=== PATIENT | female | born 1995 | race Caucasian/White ===

== ENCOUNTER 2024-08-21 13:26 | Emergency (ER) | payer BC, SELFPAY ==
[2024-08-21 13:28] VITALS: BP 126/74
[2024-08-21 13:51] VITALS: BMI 23.0
--- NOTE | 2024-08-21 13:59 | ED.GENMED ---
History of Present Illness
General
Chief Complaint: Abdominal Symptoms
Source: patient
Time Seen by Provider: 08/21/24 13:55
History of Present Illness
History of Present Illness:
29-year-old female with past medical history of kidney stones presenting to the emergency department for evaluation of sudden onset right flank pain nausea and vomiting, 10 out of 10 pain described to be sharp in similar to previous episodes of
kidney stones. Patient currently visiting here from [facility] staying with friends and boyfriend she did not take anything prior to arriving to the emergency department. Last menstrual period was 3 weeks ago, she does not have concern for
. No other symptoms at this time.
Past History
Past History
ED Past Medical History: Other (Kidney stones)
ED Past Surgical History: None
Social History
Tobacco: Non-smoker
Alcohol: Occasional
Drug: None
Personal: Other
Living: with family
Review of Systems
Review of Systems
All Other Systems: ROS reviewed and negative except as documented in HPI and ROS
Phy Exam
Physical Exam
Physical Exam:
GENERAL: Alert , in no apparent distress but appears very uncomfortable, retching
EYE: clear conjunctiva b/l
HEAD: NCAT
ENT: o/p clr, mmm.
CARDIAC: Regular rate and rhythm .
LUNGS: Clear breath sounds bilaterally, no acute respiratory distress, no wheezes/rales/rhonchi
ABDOMEN: Soft, without focal tenderness, no r/g, right CVA tenderness
NEUROLOGICAL: Alert and oriented
SKIN: Warm and dry, skin intact.
MUSCULOSKELETAL: No edema, well perfused.
PSYCH: Normal and appropriate interaction.
Scores
Heart Failure Risk
Heart Failure Risk Score: Not Applicable
Heart Score for Chest Pain Patients
STEMI patient?: Not applicable
Withdrawal Assessment of Alcohol
Withdrawal Assessment Completed?: Not applicable
Course
Orders/Labs/Results
Orders:
Orders
08/21/24 13:59
CT Abd/pel Without Iv Or Oral Urgent
Comment:
Reason For Exam: right flank pain, hx stones
Ketorolac [Toradol] 30 mg IV NOW STA
Ondansetron Injectable [Zofran] 4 mg IV NOW STA
Test Result ONCE
08/21/24 14:00
0.9% Sodium Chloride 1000 ml [Nss] 1,000 ml IV BOLUS
08/21/24 14:06
Complete Blood Count/With Diff Urgent
Comprehensive Metabolic Panel Urgent
HCG, Serum Qualitative Screen Urgent
Lipase Urgent
08/21/24 14:07
Urinalysis Reflex To Culture Urgent
Date Specimen was Collected: 08/21/24
Time Specimen was Collected: 14:07
Urine Microscopic Reflex Cult Urgent
Abnormal Lab Results
08/21/24 08/21/24
14:06 14:07
WBC 17.6 H 10^3/uL
(4.8-10.8)
Abs Immat Gran (auto) 0.1 H 10^3/uL
(0-0.05)
Absolute Neuts (auto) 15.2 H 10^3/uL
(1.4-6.5)
Absolute Monos (auto) 0.9 H 10^3/uL
(0.1-0.6)
Neutrophils % 85.9 H %
(42.2-75.2)
Lymphocytes % 7.5 L %
(20.5-51.1)
Carbon Dioxide 20 L mmol/L
(22-30)
Glucose 147 H mg/dl
(70-99)
Urine Ketones 3+ A
(Negative)
Ur Occult Blood Reflex 4+ A
(Negative)
Urine Albumin (Reflex) 2+ A
(Neg - Trace)
08/21/24 14:06
08/21/24 14:06
Vital Signs
Initial and Last Documented VS:
Initial Vital Signs
Temp Pulse Resp BP Pulse Ox
98 F 76 16 126/74 100
08/21/24 13:28 08/21/24 13:28 08/21/24 13:28 08/21/24 13:28 08/21/24 13:28
Last Documented Vital Signs
Temp Pulse Resp BP Pulse Ox
98 F 75 18 125/75 100
08/21/24 13:28 08/21/24 16:30 08/21/24 16:30 08/21/24 16:30 08/21/24 16:30
MDM/Problems Addressed
Differential Diagnosis Includes:
Renal/ureteral colic, cystitis/pyelonephritis, infected kidney stone, musculoskeletal pain, appendicitis
MDM/Problems Addressed:
29-year-old female presenting to the emergency department for sudden onset flank pain accompanied with nausea and vomiting. History of kidney stones with similar type pain/presentation. Toradol Zofran and fluids ordered for symptomatic relief. CT
scan of the abdomen ordered. Disposition pending
*Radiology
Radiology exam reviewed: radiology read reviewed
*Pulse Oximetry
Patient hypoxic: no
*Critical Care Note
Total Time (30-74mins, 75-104mins- exclusive of procedures): Not Applicable
Comment
Comment:
On initial reevaluation patient is noting significantly improved pain as well as nausea. She does have a leukocytosis which could be related to either infected kidney stone versus cystitis/pyelonephritis although I do suspect degree of reactive
leukocytosis from nausea and vomiting. Awaiting CT scan.
Patient Management
Escalation/DeEscalation of care consider admission/obs:
Patient CT scan shows a 3 mm calculus at the distal right UVJ. Pain remains resolved and patient feels well to be discharged home. Urinalysis without signs of infection. Will send prescription for Flomax, Percocet and Zofran. Continue NSAIDs for
pain as needed as well. Patient will follow-up with her urologist when she returns home to [facility]. Aware of return precautions to the ER.
ED Attending Note
-
Portions of this chart may have been created with voice recognition software.� Occasional wrong word or��sound alike� substitutions may have occurred due to the inherent limitations of voice recognition software.
Discharge Plan
Departure
Patient Disposition: Home (Routine Discharge)
Date of Disposition: 08/21/24
Time of Disposition: 16:20
Patient with high blood pressure during this ER visit?: No
Discharge Problem:
Ureterolithiasis
Instructions: Kidney stones in adults - ED discharge instructions
Prescriptions:
New
tamsulosin [Flomax] 0.4 mg capsule
0.4 mg PO DAILY Qty: 10 0RF
oxycodone-acetaminophen [Percocet] 5-325 mg tablet
1 tab PO Q6HPRN PRN (Reason: pain) Qty: 8 0RF
ondansetron 4 mg tablet,disintegrating
4 mg PO TIDPRN PRN (Reason: nausea/vomiting) Qty: 10 0RF
oxycodone-acetaminophen [Percocet] 5-325 mg tablet
1 tab PO Q6HPRN PRN (Reason: pain) Qty: 8 0RF
Referrals:
NONE,* [Family Provider] -
Interventions
Interventions:
*Risk Screen - Suicide Last Done: 08/21/24 13:28
*General Assessment Last Done: 08/21/24 13:51
*Neglect/Abuse Screening Last Done: 08/21/24 13:28
*ED- Fall Risk Assessment Last Done: 08/21/24 13:51
*ED COVID-19 Vaccine History Last Done: 08/21/24 13:51
*Nursing Disposition Last Done: 08/21/24 16:38
PJ-Duvrhp-Exoaariacl Assessment Last Done: 08/21/24 13:51
Discharge Date and Time
Discharge Date/Time: 08/21/24 16:38
Print Language: YORUBA
[2024-08-21] MEDS: ZOFRAN 4 MG IV (14:05)
[2024-08-21] MEDS: TORADOL 30 MG IV (14:05)
[2024-08-21] MEDS: NSS 1000 IV (14:05)
[2024-08-21 14:15] LABS: % Basophils 0.4 % (0-2); % Eosinophils 0.5 % (0-6); % Immature Granulocytes 0.5 % (0-0.5); % Lymphocytes 7.5 % (20.5-51.1); % Monocytes 5.2 % (1.7-9.3); % Neutrophils 85.9 % (42.2-75.2); Absolute Basophils 0.1 10^3/uL (0-0.2); Absolute Eosinophils 0.1 10^3/uL (0-0.7); Absolute Immature Granulocytes 0.1 10^3/uL (0-0.05); Absolute Lymphocytes 1.3 10^3/uL (1.2-3.4); Absolute Monocytes 0.9 10^3/uL (0.1-0.6); Absolute Neutrophils 15.2 10^3/uL (1.4-6.5); Hematocrit 37.4 % (37.0-47.0); Mean Corp Hgb Conc. 34.8 g/dL (33.0-37.0); Mean Corpuscular Hgb 29.5 pg (27.0-31.0); Mean Platelet Volume 9.1 fL (7.4-10.4); Nucleated Red Blood Cells % 0 %; Platelet Count 385 10^3/uL (130-400); Red Cell Dist. Width 12.1 % (11.5-14.5); White Blood Cell Count 17.6 10^3/uL (4.8-10.8)
[2024-08-21 14:27] LABS: HCG, Serum Qualitative Screen Negative
[2024-08-21 14:28] LABS: ALT (SGPT) 13 U/L (0-35); AST (SGOT) 19 U/L (14-36); Albumin 4.3 g/dl (3.5-5.0); Alkaline Phosphatase 60 U/L (38-126); Blood Urea Nitrogen 14 mg/dl (7-17); Calcium 9.7 mg/dl (8.4-10.2); Carbon Dioxide 20 mmol/L (22-30); Chloride 105 mmol/L (98-107); Estimated Creatinine Clearance 81 ml/min; Glucose 147 mg/dl (70-99); Lipase 62 U/L (23-300); Potassium 4.3 mmol/L (3.5-5.1); Sodium 137 mmol/L (135-145); Total Bilirubin 0.8 mg/dl (0.2-1.3); Total Protein 7.1 g/dl (6.3-8.2); eGFR > 60.00
[2024-08-21 16:30] VITALS: BP 125/75
[2024-08-21 17:04] LABS: Urine Albumin 2+ (Neg - Trace); Urine Bilirubin Negative (Negative); Urine Character Slightly Cloudy (Clear); Urine Color Yellow; Urine Glucose Negative (Negative); Urine Ketone 3+ (Negative); Urine Leukocyte Negative (Negative); Urine Nitrite Negative (Negative); Urine Occult Blood 4+ (Negative); Urine Urobilinogen Negative (Neg - 1+)
[2024-08-21 17:34] LABS: Urine Bacteria Few (Negative); Urine Red Blood Cell 50-60 /HPF (0-2); Urine White Cell 0-2 /HPF (0-5)
== END 2024-08-21 16:38 | disposition home or self-care (01) ==
LOC: EMR 13:26
PROVIDERS: Physician Assistant Medical; EMERGENCY PHYSICIAN Student in an Organized Health Care Education/Training Program
DX: N20.1 Calculus of ureter (principal); Z87.442 Personal history of urinary calculi
CPT/HCPCS: 99284; 96374; 96375; 96361; 74176; 80053; 81003; 81015; 83690; 84703; 85025